=== PATIENT | male | born 1985 | race Caucasian/White ===

== ENCOUNTER 2020-07-12 13:00 | Outpatient (RCR) | payer OTHER | END 2020-07-12 13:30 | disposition still patient (30) | LOC: PT 13:00 | DX: Z98.890 Other specified postprocedural states (principal) ==

== ENCOUNTER 2020-09-20 13:45 | Outpatient (RCR) | payer OTHER | END 2020-09-20 14:15 | disposition home or self-care (01) | LOC: PT 13:45 | DX: Z98.890 Other specified postprocedural states (principal) ==

== ENCOUNTER → 2022-08-16 | Outpatient (CLI) | payer OTHER ==
[~2022-08-16] MED LIST: PRILOSEC 20MG20 MG PO; ZOLPIDEM TART10 MG PO
== END ==
LOC: RAD 11:20
DX: M47.816 Spondylosis without myelopathy or radiculopathy, lumbar region (principal); M54.6 Pain in thoracic spine